=== PATIENT | female | born 1955 | race Caucasian/White ===

== ENCOUNTER 2017-03-15 14:38 | Emergency (ER) | payer OTHER ==
[2011-04-19 10:35] VITALS: BMI 32.8
[~2017-03-15 14:38] MED LIST: HYDROCODONE-APA1 TAB PO; PLAVIX75 MG PO
== END 2017-03-15 21:33 | disposition home or self-care (01) ==
LOC: D.ER 14:38
DX: S20.229A Contusion of unspecified back wall of thorax, initial encounter (principal); W19.XXXA Unspecified fall, initial encounter; Y93.89 Activity, other specified; Y92.89 Other specified places as the place of occurrence of the external cause; K21.9 Gastro-esophageal reflux disease without esophagitis

== ENCOUNTER 2017-05-27 12:21 | Emergency (ER) | payer OTHER ==
[2011-04-19 10:35] VITALS: BMI 32.8
[2017-05-27 14:33] LABS: APPEARANCE CLEAR (CLEAR); BILIRUBIN NEGATIVE (NEGATIVE); COLOR STRAW (YELLOW); GLUCOSE NEGATIVE (NEGATIVE); KETONE NEGATIVE (NEGATIVE); NITRITE NEGATIVE (NEGATIVE); PROTEIN NEGATIVE (NEGATIVE); UROBILINOGEN NORMAL (NORMAL)
== END 2017-05-27 14:03 | disposition home or self-care (01) ==
LOC: D.ER 12:21
PROVIDERS: Emergency Medicine
DX: S29.9XXA Unspecified injury of thorax, initial encounter (principal); W01.0XXA Fall on same level from slipping, tripping and stumbling without subsequent striking against object, initial encounter; Y93.89 Activity, other specified; Y92.029 Unspecified place in mobile home as the place of occurrence of the external cause; K21.9 Gastro-esophageal reflux disease without esophagitis